=== PATIENT | female | born 1970 | race Two or more races ===

== ENCOUNTER 2019-05-21 19:36 | Emergency (ER) | payer BC ==
[~2019-05-21] VITALS: Ht 167.6 cm; Wt 90.7 kg
[2019-05-21 23:04] VITALS: BP 141/93
[2019-05-22] MEDS ORDERED: BACITRACIN TOP OINT 1 UD PKG TOP ONE (00:30)
[2019-05-22] MEDS ORDERED: TETANUS-DIPTH-ACEL PERTUSSIS 0.5ML SYRG IM ONE (00:30)
== END 2019-05-22 00:42 | disposition home or self-care (01) ==
LOC: ER 19:39
DX: S61.012A Laceration without foreign body of left thumb without damage to nail, initial encounter (principal); X58.XXXA Exposure to other specified factors, initial encounter; Y93.89 Activity, other specified; Y99.8 Other external cause status; Y92.89 Other specified places as the place of occurrence of the external cause
CPT/HCPCS: 12001; 90471; 90715

== ENCOUNTER 2019-06-01 19:18 | Emergency (ER) | payer BC ==
[~2019-06-01] VITALS: Ht 170.2 cm; Wt 90.7 kg
[2019-06-01 20:10] VITALS: BP 117/71
== END 2019-06-01 20:20 | disposition home or self-care (01) ==
LOC: ER 19:18
DX: S61.412D Laceration without foreign body of left hand, subsequent encounter (principal); X58.XXXD Exposure to other specified factors, subsequent encounter

== ENCOUNTER 2025-09-04 10:25 | Outpatient (CLI) | payer BC ==
[~2025-09-04] VITALS: Ht 172.7 cm; Wt 118.4 kg
[2025-09-04] MEDS ORDERED: ADENOSINE 90 MG/30 ML INJ IV ONE (11:01)
[2025-09-04] MEDS ORDERED: ADENOSINE 99 MG in GIVE UN-DILUTED 0 ML IV ONE (14:00)
== END 2025-09-04 17:00 | disposition home or self-care (01) ==
LOC: Rad HDHVI 10:25
PROVIDERS: ATTEND Internal Medicine Cardiovascular Disease
DX: Z01.810 Encounter for preprocedural cardiovascular examination (principal); I49.1 Atrial premature depolarization; R00.1 Bradycardia, unspecified; Z82.49 Family history of ischemic heart disease and other diseases of the circulatory system
CPT/HCPCS: 78452; 93017; A9500; J0153